=== PATIENT | female | born 1955 | race Caucasian/White ===

== ENCOUNTER 2016-09-13 09:06 | Inpatient (IN) | payer MEDICAID ==
[~2016-09-13] VITALS: Ht 162.6 cm; Wt 133.1 kg
[~2016-09-13 09:06] MED LIST: AMLO5TAB2; LOSA25TA9; MELO-86; METO-158 PO; OMEPRAZOLE DR 20 MG CAPSULE; ROPI0.5T18 PO; SERT-274 PO; TRAZ100T2 PO
[2016-09-13] MEDS ORDERED: NITROGLYCERIN 0.4 MG SL TAB SL ONE ×2 (09:30→11:23)
[2016-09-13] MEDS ORDERED: ASPirin 81 mg TAB PO ONE ×2 (09:30→16:00)
[2016-09-13 10:12] LABS: Basophils # (auto) 0 uL; Basophils % (auto) 0.2 % (0.0-2.0); Eosinophils # (auto) 0.4 uL; Eosinophils % (auto) 8.2 % (0.0-7.0); Hematocrit 43.1 % (36.0-46.0); Hemoglobin 13.8 g/dL (12.2-16.2); Lymphocytes # (auto) 0.9 uL; Lymphocytes % (auto) 18.1 % (10.0-50.0); Mean Corpuscular Hemoglobin 28.4 pg (28.0-32.0); Mean Corpuscular Hgb Conc. 32.1 g/dL (32.0-36.0); Mean Corpuscular Volume 88.4 fL (80.0-100.0); Mean Platelet Volume 9.6 fL (7.4-10.4); Monocytes # (auto) 0.3 uL; Monocytes % (auto) 6.6 % (0.0-12.0); Neutrophils # (auto) 3.5 uL; Neutrophils % (auto) 66.9 % (37.0-80.0); Platelet Count (auto) 219 10^3/uL (140-450); Red Cell Distribution Width 14.9 % (11.6-16.0); White Blood Cell 5.3 10^3/uL (4.4-10.8)
[2016-09-13 10:33] LABS: Albumin 3.7 g/dL (3.4-5.0); Alkaline Phosphatase 60 U/L (45-117); Anion Gap 6 (5-15); Aspartate Aminotransferase 60 U/L (15-37); BUN/Creatinine Ratio 22.2; Bilirubin, Total 0.4 mg/dL (0.2-1.0); Blood Urea Nitrogen 18 mg/dL (7-18); Calcium 9.1 mg/dL (8.5-10.1); Carbon Dioxide 30 mmol/L (21-32); Chloride 102 mmol/L (98-107); GFR African American 92 mL/min; GFR Non-African American 76 mL/min; Glucose 191 mg/dL (74-106); Potassium 4.7 mmol/L (3.5-5.1); Sodium 138 mmol/L (136-145)
[2016-09-13 11:00] LABS: B-Type Natriuretic Peptide 64.3 pg/mL (0-100); Temperature: 24.5 C (20.0-25.0)
[2016-09-13] MEDS ORDERED: ASPirin 81 mg TAB ONE (11:24)
[2016-09-13 12:48] LABS: Urine Bilirubin Negative (Negative); Urine Blood Negative /uL (Negative); Urine Color Yellow (Yellow); Urine Glucose Normal (Normal); Urine Ketone Negative (Negative); Urine Nitrite Negative (Negative); Urine RBC 1 /hpf (0 - 4); Urine Squamous Epithelial Cell FEW /hpf (<5); Urine Urobilinogen Normal (Negative); Urine pH 6.5 (5.0-8.0)
[2016-09-13] MEDS ORDERED: VALS320T15 PO (13:25)
[2016-09-13] MEDS ORDERED: OMEG600C2 PO (13:25)
[2016-09-13] MEDS ORDERED: ARIP2TAB PO (13:25)
[2016-09-13] MEDS ORDERED: POTA-167 PO (13:25)
[2016-09-13] MEDS ORDERED: METF-489 PO (13:25)
[2016-09-13] MEDS ORDERED: OMEP20CA5 PO (13:25)
[2016-09-13] MEDS ORDERED: IOHEXOL 350 MG/ML 100ML IJ ONE (13:55)
[2016-09-13] MEDS ORDERED: ENOXAPARIN SOD 120 MG/0.8 ML SYRINGE SC ONE (15:45)
[2016-09-13] MEDS ORDERED: HYDROcodone-ACET 5/325MG TAB PO PRN (16:00)
[2016-09-13] MEDS ORDERED: ONDANSETRON HCL 4 MG/2 ML VIAL IV PRN (16:00)
[2016-09-13] MEDS ORDERED: MORPHINE SULF INJ 2 MG/ML SYRINGE 1ML IV PRN (16:00)
[2016-09-13] MEDS ORDERED: DEXTROSE (50%) 50ML SYRG IV PRN (16:00)
[2016-09-13] MEDS ORDERED: PANTOPRAZOLE 40 MG TAB PO ONE (16:00)
[2016-09-13] MEDS ORDERED: NITROGLYCERIN 0.4 MG SL TAB SL PRN (16:00)
[2016-09-13] MEDS: InsuLIN REG 1unit/0.01ml Soln (100units/ml) SC SCH (18:17)
[2016-09-13] MEDS: ACCU-CHEK COMFORT CURVE STRIP VI SCH (18:17)
[2016-09-13 20:27] VITALS: BP 159/88
[2016-09-13] MEDS: traZODone HCL 50 MG TAB PO SCH (21:38)
[2016-09-13] MEDS: METOPROLOL TARTRATE 25 MG TAB PO SCH (21:39)
[2016-09-13] MEDS ORDERED: METOPROLOL TARTRATE 50 MG TAB PO SCH (22:00)
[2016-09-13] MEDS ORDERED: ATORVASTATIN 20 MG TAB PO SCH (22:00)
[2016-09-14] MEDS: ACCU-CHEK COMFORT CURVE STRIP VI SCH ×4 (00:17→12:44)
[2016-09-14] MEDS: InsuLIN REG 1unit/0.01ml Soln (100units/ml) SC SCH ×4 (00:27→12:44)
[2016-09-14 06:00] VITALS: BP 147/73
[2016-09-14 07:26] LABS: Albumin 3.3 g/dL (3.4-5.0); Alkaline Phosphatase 59 U/L (45-117); Anion Gap 8 (5-15); Aspartate Aminotransferase 64 U/L (15-37); BUN/Creatinine Ratio 18.2; Bilirubin, Total 0.5 mg/dL (0.2-1.0); Blood Urea Nitrogen 16 mg/dL (7-18); Calcium 8.6 mg/dL (8.5-10.1); Carbon Dioxide 30 mmol/L (21-32); Chloride 101 mmol/L (98-107); Cholesterol 140 mg/dL (< 200); GFR African American 83 mL/min; GFR Non-African American 69 mL/min; Glucose 181 mg/dL (74-106); HDL Cholesterol 36 mg/dL (40-59); LDL Cholesterol 86 mg/dL (< 100); Potassium 3.8 mmol/L (3.5-5.1); Sodium 139 mmol/L (136-145); Total Protein 6.5 g/dL (6.4-8.2); Triglycerides 199 mg/dL (< 150)
[2016-09-14 09:00] VITALS: BP 142/76
[2016-09-14] MEDS ORDERED: PANTOPRAZOLE 40 MG TAB PO SCH (10:00)
[2016-09-14] MEDS ORDERED: ASPirin 81 mg TAB PO SCH (10:00)
[2016-09-14] MEDS: METOPROLOL TARTRATE 25 MG TAB PO SCH (10:00)
[2016-09-14] MEDS ORDERED: VALSARTAN 80 MG TAB PO SCH (10:00)
[2016-09-14] MEDS ORDERED: SERTRALINE HCL 50 MG TAB PO SCH (10:00)
[2016-09-14] MEDS ORDERED: ADENOSINE 112 MG in GIVE UN-DILUTED 0 ML IV STA (10:48)
[2016-09-14] MEDS: traZODone HCL 50 MG TAB PO SCH (12:00)
[2016-09-14 13:00] VITALS: BP 157/100
[2016-09-14] MEDS ORDERED: PANTOPRAZOLE 40 MG TAB PO ONE (13:00)
[2016-09-14] MEDS ORDERED: ASPirin 81 mg TAB PO ONE (13:00)
[2016-09-14] MEDS ORDERED: SERTRALINE HCL 50 MG TAB PO ONE (13:00)
[2016-09-14] MEDS ORDERED: METOPROLOL TARTRATE 25 MG TAB PO ONE (13:00)
[2016-09-14] MEDS ORDERED: VALSARTAN 80 MG TAB PO ONE (13:00)
[2016-09-14 17:56] VITALS: BP 150/128
[2016-09-14] MEDS ORDERED: ACCU-CHEK COMFORT CURVE STRIP VI SCH (18:00)
[2016-09-14] MEDS ORDERED: InsuLIN REG 1unit/0.01ml Soln (100units/ml) SC SCH (18:00)
== END 2016-09-14 18:30 | disposition left against medical advice (07) | DRG 203 ==
LOC: ER 09:06 → TELE 09:07 → TELE-WESTW 20:00
PROVIDERS: ADMIT Internal Medicine; ATTEND Internal Medicine
DX: R07.89 Other chest pain (principal); Z68.43 Body mass index [BMI] 50.0-59.9, adult; I10 Essential (primary) hypertension; E66.01 Morbid (severe) obesity due to excess calories; G47.30 Sleep apnea, unspecified; E11.9 Type 2 diabetes mellitus without complications; F32.9 Major depressive disorder, single episode, unspecified; E78.5 Hyperlipidemia, unspecified; M19.90 Unspecified osteoarthritis, unspecified site; R79.89 Other specified abnormal findings of blood chemistry; F41.9 Anxiety disorder, unspecified; J45.909 Unspecified asthma, uncomplicated; K21.9 Gastro-esophageal reflux disease without esophagitis; Z82.49 Family history of ischemic heart disease and other diseases of the circulatory system; Z87.891 Personal history of nicotine dependence; Z88.6 Allergy status to analgesic agent; Z79.899 Other long term (current) drug therapy
CPT/HCPCS: 36415; 71020; 71275; 78452; 80053; 80061; 81001; 82962; 83880; 84484; 85025; 85379; 93005; 93017; 93306; 96372; J0153; J1815

== ENCOUNTER 2017-02-07 20:48 | Emergency (ER) | payer MEDICAID ==
[~2017-02-07] VITALS: Ht 167.6 cm; Wt 136.1 kg
[~2017-02-07 20:48] MED LIST changes: -AMLO5TAB2; +ARIP2TAB PO; -LOSA25TA9; -MELO-86; +METF-489 PO; +OMEG600C2 PO; +OMEP20CA74 PO; -OMEPRAZOLE DR 20 MG CAPSULE; +POTA-167 PO; +VALS320T15 PO
[2017-02-07 21:00] VITALS: BP 142/75
[2017-02-07] MEDS ORDERED: KETOROLAC TROMETH 60MG/2ML VIAL IM ONE (22:45)
== END 2017-02-07 23:38 | disposition home or self-care (01) ==
LOC: EDBD 20:48 → ER 20:52
DX: S80.01XA Contusion of right knee, initial encounter (principal); M25.461 Effusion, right knee; M19.90 Unspecified osteoarthritis, unspecified site; K21.9 Gastro-esophageal reflux disease without esophagitis; I10 Essential (primary) hypertension; W10.9XXA Fall (on) (from) unspecified stairs and steps, initial encounter; Y93.89 Activity, other specified; Y99.8 Other external cause status; Z88.6 Allergy status to analgesic agent; Z79.899 Other long term (current) drug therapy; Y92.009 Unspecified place in unspecified non-institutional (private) residence as the place of occurrence of the external cause
CPT/HCPCS: 29505; 73560; 96372; 99284; J1885